=== PATIENT | male | born 1980 | race Caucasian/White ===

== ENCOUNTER 2018-06-30 20:00 | Emergency (ER) | payer MEDICAID ==
[~2018-06-30] VITALS: Ht 170.2 cm; Wt 79.0 kg
[2018-06-30] MEDS ORDERED: ketorolac tromethamine 15mg/ml inj. IM ONE (21:00)
[2018-06-30] MEDS ORDERED: HYDR-4383 PO (21:04)
[2018-06-30] MEDS ORDERED: IBUP-1984 PO (21:04)
[2018-06-30 21:42] VITALS: BP 131/65
== END 2018-06-30 21:42 | disposition home or self-care (01) ==
LOC: ER 20:00
DX: K02.9 Dental caries, unspecified (principal); Z88.1 Allergy status to other antibiotic agents
CPT/HCPCS: 96372; 99283; J1885

== ENCOUNTER 2018-10-21 15:13 | Emergency (ER) | payer MEDICAID ==
[~2018-10-21] VITALS: Ht 170.2 cm; Wt 83.0 kg
[~2018-10-21 15:13] MED LIST: HYDR-4383 PO
[2018-10-21 15:17] VITALS: BP 132/76
[2018-10-21] MEDS ORDERED: dexamethasone sod phosphate 10mg/ml inj PO STA (15:38)
[2018-10-21] MEDS ORDERED: LIDOcaine Viscous 15ml cup MM STA (15:38)
[2018-10-21 16:46] LABS: MONOTEST NEGATIVE (Neg)
[2018-10-21] MEDS ORDERED: LIDO20SO16 PO (17:01)
== END 2018-10-21 17:13 | disposition home or self-care (01) ==
LOC: ER 15:13
DX: J02.8 Acute pharyngitis due to other specified organisms (principal); B97.89 Other viral agents as the cause of diseases classified elsewhere; F15.90 Other stimulant use, unspecified, uncomplicated; Z88.1 Allergy status to other antibiotic agents; Z79.899 Other long term (current) drug therapy
CPT/HCPCS: 36415; 86308; 87081; 87880; 99283; J1100

== ENCOUNTER 2018-10-25 02:12 | Emergency (ER) | payer MEDICAID ==
[~2018-10-25] VITALS: Ht 170.2 cm; Wt 81.8 kg
[~2018-10-25 02:12] MED LIST changes: +LIDO20SO16 PO
[2018-10-25 02:19] VITALS: BP 135/78
[2018-10-25] MEDS ORDERED: dexamethasone sod phosphate 10mg/ml inj IM STA (02:29)
[2018-10-25] MEDS ORDERED: ketorolac trometh inj. 60 MG/2 ML VIAL IM ONE (02:30)
[2018-10-25] MEDS ORDERED: amoxicillin 250mg capsule PO ONE (02:30)
[2018-10-25] MEDS ORDERED: AMOX500C2 PO (02:30)
== END 2018-10-25 02:54 | disposition home or self-care (01) ==
LOC: ER 02:13
DX: J02.9 Acute pharyngitis, unspecified (principal); F15.90 Other stimulant use, unspecified, uncomplicated; Z88.1 Allergy status to other antibiotic agents
CPT/HCPCS: 96372; 99283; J1100; J1885

== ENCOUNTER 2018-10-26 17:35 | Emergency (ER) | payer MEDICAID ==
[~2018-10-26] VITALS: Ht 170.2 cm; Wt 81.8 kg
[~2018-10-26 17:35] MED LIST changes: +AMOX500C2 PO
[2018-10-26] MEDS ORDERED: ketorolac trometh. 30mg/ml inj. IV ONE (19:00)
[2018-10-26] MEDS ORDERED: morphine 4 MG/ML inj SYRINge IV ONE (19:00)
[2018-10-26] MEDS ORDERED: normal saline 1000ml 1,000 ML IV ONE (19:00)
[2018-10-26 19:31] LABS: BASOPHILS # (AUTO) 0.1 X10'3 (0-0.2); BASOPHILS % (AUTO) 0.8 % (0-1); EOSINOPHILS # (AUTO) 0.1 X10'3 (0-0.9); HEMATOCRIT 42.2 % (42.0-52.0); HEMOGLOBIN 14.6 g/dl (14.0-17.9); LYMPHOCYTES # (AUTO) 2.7 X10'3 (1.1-4.8); LYMPHOCYTES % (AUTO) 25.1 % (21-51); MEAN CORPUSCULAR HEMOGLOBIN 33.1 PG (27.0-31.0); MEAN CORPUSCULAR HGB CONC 34.6 g/dL (33.0-36.5); MEAN CORPUSCULAR VOLUME 95.6 FL (78-98); MEAN PLATELET VOLUME 8.6 FL (7.4-10.4); MONOCYTES # (AUTO) 1.1 X10'3 (0-0.9); MONOCYTES % (AUTO) 9.9 % (2-12); NEUTROPHILS # (AUTO) 6.9 X10'3 (1.8-7.7); NEUTROPHILS % (AUTO) 63.2 % (42-75); PLATELET COUNT 255 X10'3 (140-440); RED BLOOD COUNT 4.42 X10'6 (4.70-6.10); RED CELL DISTRIBUTION WIDTH 12.2 % (11.5-14.5); WHITE BLOOD COUNT 10.9 X10'3 (4.5-11.0)
[2018-10-26] MEDS ORDERED: iohexol 300mg/ml 100ml inj. ONE (19:31)
--- NOTE | 2018-10-26 19:31 | NUR ---
to ct scan
--- NOTE | 2018-10-26 19:49 | NUR ---
back from ct
[2018-10-26 19:55] LABS: ALANINE AMINOTRANSFERASE 21 U/L (12-78); ALBUMIN 3.5 G/DL (3.4-5.0); ALBUMIN/GLOBULIN RATIO 0.9 (1.1-1.5); ALKALINE PHOSPHATASE 87 IU/L (46-116); ANION GAP 8 (8-16); ASPARTATE AMINO TRANSFERASE 19 U/L (10-37); BILIRUBIN,TOTAL 0.4 MG/DL (0.1-1.0); BLOOD UREA NITROGEN 26 MG/DL (7-18); BUN/CREATININE RATIO 26.3 (5.4-32.0); CHLORIDE 106 MMOL/L (99-107); CREATININE 0.99 MG/DL (0.60-1.10); GLUCOSE 91 MG/DL (70-104); POTASSIUM 4.3 MMOL/L (3.5-5.1); SODIUM 141 MMOL/L (135-145); TOTAL CARBON DIOXIDE 27.1 MMOL/L (24-32); TOTAL PROTEIN 7.5 G/DL (6.4-8.2); eGFR 84 ML/MIN
--- NOTE | 2018-10-26 19:59 | NUR ---
relieving RN for break, pt is resting quietly on gurney, liter bolus of NS infusing w/o, IV to rt forearm is patent and clear, waiting for CT results
[2018-10-26] MEDS ORDERED: dexamethasone sod phosphate 10mg/ml inj IV STA (21:04)
[2018-10-26] MEDS ORDERED: clindamycin 600mg/D5W 50ml 50 ML IV SCH (21:05)
--- NOTE | 2018-10-27 00:02 | NUR ---
CALLED [facility] TO SEE ABOUT ROOM. THEY ARE DOING A FALLOW UP ON IT AND WILL CALL BACK WITH INFO
--- NOTE | 2018-10-27 00:35 | NUR ---
CALLED [facility] AT 00:35. NOT AT [facility] WILL CALL BACK EVERY 30 MINS FOR AN ETA, OR UNTIL I GET AN ETA
[2018-10-27] MEDS ORDERED: morphine 4 MG/ML inj SYRINge IV ONE (01:00)
[2018-10-27] MEDS ORDERED: ondansetron/PF 4mg/2ml inj IV ONE (01:00)
--- NOTE | 2018-10-27 01:09 | NUR ---
CALLED [facility] AT 01:09 FOR ETA ON [employer]. STILL NOT ABLE TO GIVE US AN ETA
--- NOTE | 2018-10-27 01:38 | NUR ---
[facility] CALLED BACK WITH ETA 5 MINS
[2018-10-27 01:41] VITALS: BP 116/63
--- NOTE | 2018-10-27 01:41 | NUR ---
pt updated that ambulance transfer to be here in about 20 min. pt with stable vs and pain is 2 out of 10.
--- NOTE | 2018-10-27 01:47 | NUR ---
[facility] AT BEDSIDE FOR TRANSPORT TO [facility] FOR ENT SERVICE.
== END 2018-10-27 01:50 | disposition short-term general hospital (02) ==
LOC: ER 17:36
DX: J35.1 Hypertrophy of tonsils (principal); F15.90 Other stimulant use, unspecified, uncomplicated; Z88.1 Allergy status to other antibiotic agents; Z79.2 Long term (current) use of antibiotics; Z79.899 Other long term (current) drug therapy
CPT/HCPCS: 36415; 70491; 80053; 83605; 85025; 96365; 96375; 96376; 99285; J1100; J1885; J2270; J2405; J7030; Q9967; 96361; 99284; J3490

== ENCOUNTER 2019-02-16 14:49 | Emergency (ER) | payer MEDICAID, OTHER ==
[~2019-02-16] VITALS: Ht 170.2 cm; Wt 82.0 kg
[~2019-02-16 14:49] MED LIST changes: -AMOX500C2 PO
[2019-02-16 15:17] VITALS: BP 126/69
== END 2019-02-16 18:09 | disposition home or self-care (01) ==
LOC: ER 14:50
DX: J06.9 Acute upper respiratory infection, unspecified (principal); F17.200 Nicotine dependence, unspecified, uncomplicated; F15.90 Other stimulant use, unspecified, uncomplicated; Z88.1 Allergy status to other antibiotic agents
CPT/HCPCS: 71045; 99283

== ENCOUNTER 2020-05-18 13:35 | Emergency (ER) | payer OTHER ==
[~2020-05-18] VITALS: Ht 170.2 cm; Wt 69.1 kg
[2020-05-18] MEDS ORDERED: ketorolac tromethamine 15mg/ml inj. IM ONE (15:40)
[2020-05-18] MEDS ORDERED: CYCL-1 PO (15:41)
== END 2020-05-18 16:13 | disposition home or self-care (01) ==
LOC: ER 13:36
DX: S39.012A Strain of muscle, fascia and tendon of lower back, initial encounter (principal); F17.200 Nicotine dependence, unspecified, uncomplicated; Z88.1 Allergy status to other antibiotic agents; Z79.899 Other long term (current) drug therapy; X58.XXXA Exposure to other specified factors, initial encounter; Y93.89 Activity, other specified; Y92.89 Other specified places as the place of occurrence of the external cause; Y99.8 Other external cause status
CPT/HCPCS: 96372; 99284; J1885

== ENCOUNTER 2021-01-13 17:55 | Emergency (ER) | payer OTHER ==
[~2021-01-13 17:55] MED LIST changes: +CYCL-1 PO
== END 2021-01-13 19:48 | disposition left against medical advice (07) ==
LOC: ER 17:58
DX: M25.552 Pain in left hip (principal); Z53.21 Procedure and treatment not carried out due to patient leaving prior to being seen by health care provider

== ENCOUNTER 2021-11-07 10:26 | Emergency (ER) | payer BC, OTHER ==
[~2021-11-07] VITALS: Ht 167.6 cm; Wt 72.7 kg
[2021-11-07 10:35] VITALS: BP 118/51
[2021-11-07] MEDS ORDERED: CefTRIAXone 500MG IM Kit w/LIDOcaine IM ONE (13:05)
[2021-11-07] MEDS ORDERED: DOXYCYCLINE 100MG CAPSULE PO ONE (13:05)
[2021-11-07] MEDS ORDERED: DOXY100C76 PO (13:06)
== END 2021-11-07 13:45 | disposition home or self-care (01) ==
LOC: ER 10:27
DX: A63.8 Other specified predominantly sexually transmitted diseases (principal); Z79.1 Long term (current) use of non-steroidal anti-inflammatories (NSAID); Z79.899 Other long term (current) drug therapy; Z88.1 Allergy status to other antibiotic agents
CPT/HCPCS: 96372; 99283; J0696

== ENCOUNTER 2022-06-26 12:44 | Emergency (ER) | payer BC, OTHER ==
[~2022-06-26] VITALS: Ht 170.2 cm; Wt 72.7 kg
[2022-06-26 13:00] VITALS: BP 124/90
== END 2022-06-26 14:26 | disposition left against medical advice (07) ==
LOC: ER 12:44
DX: L08.9 Local infection of the skin and subcutaneous tissue, unspecified (principal); Z53.21 Procedure and treatment not carried out due to patient leaving prior to being seen by health care provider
CPT/HCPCS: 99281

== ENCOUNTER 2022-08-23 10:33 | Emergency (ER) | payer BC, OTHER ==
[~2022-08-23] VITALS: Ht 170.2 cm; Wt 68.2 kg
[2022-08-23 10:36] VITALS: BP 131/86
[2022-08-23] MEDS ORDERED: CefTRIAXone 1000mg IM Kit (w/lidocaine diluent) IM STA (10:49)
[2022-08-23] MEDS ORDERED: PENICILLIN G BENZATHINE 2,400,000 UNIT/4 ML SYRINGE IM STA (10:49)
[2022-08-23] MEDS ORDERED: azithromycin 250mg tablet PO ONE (10:50)
[2022-08-23] MEDS ORDERED: CefTRIAXone 500MG IM Kit w/LIDOcaine IM STA (10:55)
--- NOTE | 2022-08-23 10:59 | NUR ---
LAB WENT TO ROOM TO DRAW LABS. PT GOT UP AND SWIFTLY WALKED OUT AND TOLD NURSE HE HAD "FAMILY EMERGENCY" AND WALKED OUT. NOTIFIED.
== END 2022-08-23 11:01 | disposition home or self-care (01) ==
LOC: ER 10:33
DX: A64 Unspecified sexually transmitted disease (principal); Z88.1 Allergy status to other antibiotic agents
CPT/HCPCS: 99281

== ENCOUNTER 2022-08-26 05:49 | Emergency (ER) | payer BC, OTHER ==
[~2022-08-26] VITALS: Ht 167.6 cm; Wt 75.0 kg
[2022-08-26 06:17] VITALS: BP 138/78
[2022-08-26] MEDS ORDERED: CLOT15CR10 TOP (06:31)
[2022-08-26] MEDS ORDERED: DOXY-356 PO (06:31)
== END 2022-08-26 06:42 | disposition home or self-care (01) ==
LOC: ER 05:50
DX: Z20.2 Contact with and (suspected) exposure to infections with a predominantly sexual mode of transmission (principal); R21 Rash and other nonspecific skin eruption; Z88.1 Allergy status to other antibiotic agents; Z79.899 Other long term (current) drug therapy
CPT/HCPCS: 99283

== ENCOUNTER 2022-10-01 10:08 | Emergency (ER) | payer OTHER, MEDICAID ==
[~2022-10-01] VITALS: Ht 170.2 cm; Wt 73.4 kg
[~2022-10-01 10:08] MED LIST changes: +CLOT15CR10 TOP
[2022-10-01 10:26] VITALS: TEMP 98.2
[2022-10-01] MEDS ORDERED: LIDOcaine/epinephrine/tetracaine TOPICAL sol 3 ML syringe TOP ONE (11:50)
[2022-10-01] MEDS ORDERED: mupirocin 2% ointment 22GM TP ONE (11:50)
[2022-10-01] MEDS ORDERED: LIDOcaine 1% w/EPI 1:100,000 inj. MDV 50 ML VIAL IM ONE (11:50)
[2022-10-01] MEDS ORDERED: HYDR-3972 PO (12:45)
[2022-10-01] MEDS ORDERED: CEPH-585 PO (12:45)
[2022-10-01] MEDS ORDERED: SULF1TAB49 PO (12:45)
[2022-10-01 12:56] VITALS: BP 130/80; PULSE 76; RESP 17; O2SAT 97
== END 2022-10-01 13:00 | disposition home or self-care (01) ==
LOC: ER 10:08
DX: L02.412 Cutaneous abscess of left axilla (principal); F15.10 Other stimulant abuse, uncomplicated; Z88.1 Allergy status to other antibiotic agents; Z79.899 Other long term (current) drug therapy
CPT/HCPCS: 87070; 87077; 87186; 99283; J3490; A6258; A6449

== ENCOUNTER 2022-12-02 10:34 | Emergency (ER) | payer MEDICAID, OTHER ==
[~2022-12-02] VITALS: Ht 170.2 cm; Wt 70.2 kg
[~2022-12-02 10:34] MED LIST changes: +CEPH-585 PO
[2022-12-02 12:22] VITALS: BP 116/76; PULSE 96; RESP 16; TEMP 98.8; O2SAT 100
--- NOTE | 2022-12-02 13:46 | NUR ---
I agree with the assessment per Karis Gaffney LVN
== END 2022-12-02 12:47 | disposition home or self-care (01) ==
LOC: ER 10:34
DX: J20.9 Acute bronchitis, unspecified (principal); Z20.822 Contact with and (suspected) exposure to COVID-19; F15.90 Other stimulant use, unspecified, uncomplicated; Z88.1 Allergy status to other antibiotic agents; Z79.2 Long term (current) use of antibiotics; Z79.899 Other long term (current) drug therapy
CPT/HCPCS: 36415; 71045; 87502; 87503; 87811; 99284

== ENCOUNTER 2022-12-09 01:21 | Emergency (ER) | payer MEDICAID ==
[~2022-12-09] VITALS: Ht 167.6 cm; Wt 70.5 kg
[2022-12-09 01:35] VITALS: BP 142/75; PULSE 101; RESP 16; TEMP 97.8; O2SAT 100
[2022-12-09 02:01] LABS: BASOPHILS # (AUTO) 0.1 X10'3 (0-0.2); BASOPHILS % (AUTO) 1.2 % (0-1); EOSINOPHILS # (AUTO) 0.1 X10'3 (0-0.9); EOSINOPHILS % (AUTO) 1.2 % (0-6); HEMATOCRIT 42.2 % (42.0-52.0); HEMOGLOBIN 14.4 g/dl (14.0-17.9); LYMPHOCYTES # (AUTO) 3.1 X10'3 (1.1-4.8); LYMPHOCYTES % (AUTO) 37.9 % (21-51); MEAN CORPUSCULAR HEMOGLOBIN 31.7 PG (27.0-31.0); MEAN CORPUSCULAR HGB CONC 34.2 g/dL (33.0-36.5); MEAN CORPUSCULAR VOLUME 92.8 FL (78-98); MONOCYTES # (AUTO) 0.7 X10'3 (0-0.9); MONOCYTES % (AUTO) 8.4 % (2-12); NEUTROPHILS # (AUTO) 4.1 X10'3 (1.8-7.7); NEUTROPHILS % (AUTO) 51.3 % (42-75); PLATELET COUNT 403 X10'3 (140-440); RED BLOOD COUNT 4.54 X10'6 (4.70-6.10); RED CELL DISTRIBUTION WIDTH 12.9 % (11.5-14.5); WHITE BLOOD COUNT 8.1 X10'3 (4.5-11.0)
[2022-12-09 02:14] LABS: ALANINE AMINOTRANSFERASE 48 U/L (12-78); ALBUMIN 3.4 G/DL (3.4-5.0); ALBUMIN/GLOBULIN RATIO 0.8 (1.1-1.5); ALKALINE PHOSPHATASE 101 IU/L (46-116); ANION GAP 6 (8-16); ASPARTATE AMINO TRANSFERASE 20 U/L (10-37); BILIRUBIN,TOTAL 0.5 MG/DL (0.1-1.0); BLOOD UREA NITROGEN 19 MG/DL (7-18); CALCIUM 9.3 MG/DL (8.5-10.1); CHLORIDE 101 MMOL/L (99-107); CREATININE 1.27 MG/DL (0.60-1.10); GLUCOSE 104 MG/DL (70-104); POTASSIUM 3.8 MMOL/L (3.5-5.1); SODIUM 136 MMOL/L (135-145); TOTAL CARBON DIOXIDE 28.9 MMOL/L (24-32); TOTAL PROTEIN 7.6 G/DL (6.4-8.2); eCRCL 68 ML/MIN; eGFR 62 ML/MIN
[2022-12-09 02:15] LABS: LIPASE 25 U/L (16-77)
== END 2022-12-09 03:55 | disposition left against medical advice (07) ==
LOC: ER 01:21
DX: R10.31 Right lower quadrant pain (principal); Z53.21 Procedure and treatment not carried out due to patient leaving prior to being seen by health care provider
CPT/HCPCS: 36415; 80053; 83690; 85025; 99281

== ENCOUNTER 2023-04-07 11:44 | Emergency (ER) | payer MEDICAID ==
[~2023-04-07] VITALS: Ht 167.6 cm; Wt 80.1 kg
[2023-04-07 11:45] VITALS: BP 126/58; PULSE 96; TEMP 98.1; O2SAT 100
[2023-04-07] MEDS ORDERED: AMOX-580 PO (12:07)
[2023-04-07 12:31] VITALS: RESP 17
== END 2023-04-07 12:32 | disposition home or self-care (01) ==
LOC: ER 11:45
DX: J32.9 Chronic sinusitis, unspecified (principal); Z20.822 Contact with and (suspected) exposure to COVID-19; Z88.1 Allergy status to other antibiotic agents; Z79.2 Long term (current) use of antibiotics; Z79.899 Other long term (current) drug therapy
CPT/HCPCS: 36415; 87811; 99283

== ENCOUNTER 2023-04-29 05:41 | Emergency (ER) | payer MEDICAID ==
[~2023-04-29] VITALS: Ht 167.6 cm; Wt 83.0 kg
[2023-04-29 05:46] VITALS: BP 127/73; PULSE 87; RESP 16; TEMP 98.2; O2SAT 99
== END 2023-04-29 07:14 | disposition left against medical advice (07) ==
LOC: ER 05:42
DX: M25.551 Pain in right hip (principal); Z53.21 Procedure and treatment not carried out due to patient leaving prior to being seen by health care provider
CPT/HCPCS: 99281

== ENCOUNTER 2023-10-10 21:07 | Emergency (ER) | payer BC, MEDICAID ==
[~2023-10-10] VITALS: Ht 167.6 cm; Wt 81.8 kg
[~2023-10-10 21:07] MED LIST changes: -CEPH-585 PO
[2023-10-10 21:20] VITALS: TEMP 98
[2023-10-10 21:54] LABS: BILIRUBIN,URINE NEGATIVE (Neg); CLARITY,URINE CLEAR (Clear); COLOR,URINE YELLOW (Yellow); GLUCOSE, URINE NEGATIVE (Neg); KETONES,URINE NEGATIVE (Neg); LEUKOCYTE ESTERASE ,URINE NEGATIVE (Neg); NITRITES, URINE NEGATIVE (Neg); OCCULT BLOOD,URINE LARGE (Neg); PROTEIN,URINE NEGATIVE (Neg); UROBILINOGEN,URINE 0.2 E.U/dL (0.2-1.0)
[2023-10-10 21:59] LABS: UA COLLECTION TYPE CLN CATCH MIDSTREAM
[2023-10-10] MEDS: normal saline 1000ML IV soln IVB ONE (22:00)
[2023-10-10] MEDS: ketorolac trometh 15mg/ml vial 15 MG/ML ML IV ONE (22:01)
[2023-10-10 22:03] LABS: BACTERIA,URINE 2+ /HPF (Neg); RBC,URINE 20-50 /HPF (0-2); SQUAMOUS EPITHELIAL CELL,UR FEW /LPF (FEW); WBC,URINE 0-4 /HPF (0-4)
[2023-10-10 22:15] VITALS: BP 124/74; PULSE 79; RESP 15; O2SAT 96
[2023-10-10 22:26] LABS: ALANINE AMINOTRANSFERASE 33 U/L (12-78); ALBUMIN 3.6 G/DL (3.4-5.0); ALBUMIN/GLOBULIN RATIO 1.1 (1.1-1.5); ALKALINE PHOSPHATASE 85 IU/L (46-116); ANION GAP 8 (8-16); ASPARTATE AMINO TRANSFERASE 28 U/L (10-37); BILIRUBIN,TOTAL 0.4 MG/DL (0.1-1.0); BLOOD UREA NITROGEN 13 MG/DL (7-18); BUN/CREATININE RATIO 11.6 (10.0-20.0); CALCIUM 8.8 MG/DL (8.5-10.1); CHLORIDE 104 MMOL/L (99-107); CREATININE 1.12 MG/DL (0.60-1.10); GLUCOSE 98 MG/DL (70-104); LIPASE 35 U/L (16-77); POTASSIUM 3.7 MMOL/L (3.5-5.1); SODIUM 140 MMOL/L (135-145); TOTAL CARBON DIOXIDE 28.1 MMOL/L (24-32); TOTAL PROTEIN 6.8 G/DL (6.4-8.2); eCRCL 76 ML/MIN; eGFR 71 ML/MIN
[2023-10-10 22:27] LABS: BASOPHILS % (AUTO) 0.4 % (0-1); EOSINOPHILS # (AUTO) 0.1 X10'3 (0-0.9); EOSINOPHILS % (AUTO) 1.3 % (0-6); HEMATOCRIT 42.9 % (42.0-52.0); HEMOGLOBIN 14.4 g/dl (14.0-17.9); LYMPHOCYTES # (AUTO) 2.2 X10'3 (1.1-4.8); LYMPHOCYTES % (AUTO) 33.9 % (21-51); MEAN CORPUSCULAR HEMOGLOBIN 31.4 PG (27.0-31.0); MEAN CORPUSCULAR HGB CONC 33.6 g/dL (33.0-36.5); MEAN CORPUSCULAR VOLUME 93.3 FL (78-98); MONOCYTES # (AUTO) 0.5 X10'3 (0-0.9); MONOCYTES % (AUTO) 7.7 % (2-12); NEUTROPHILS # (AUTO) 3.7 X10'3 (1.8-7.7); NEUTROPHILS % (AUTO) 56.7 % (42-75); PLATELET COUNT 188 X10'3 (140-440); RED BLOOD COUNT 4.59 X10'6 (4.70-6.10); RED CELL DISTRIBUTION WIDTH 13.5 % (11.5-14.5); WHITE BLOOD COUNT 6.6 X10'3 (4.5-11.0)
[2023-10-11] MEDS ORDERED: HYDR-3965 PO (01:39)
[2023-10-11] MEDS ORDERED: ONDA-245 PO (01:39)
[2023-10-11] MEDS ORDERED: FLO0.4C PO (01:39)
== END 2023-10-10 23:20 | disposition home or self-care (01) ==
LOC: ER 21:08
DX: R31.9 Hematuria, unspecified (principal); M54.9 Dorsalgia, unspecified; Z88.1 Allergy status to other antibiotic agents; Z79.899 Other long term (current) drug therapy
CPT/HCPCS: 36415; 74176; 80053; 81001; 83690; 85025; 96374; 99285; J1885; J7030

== ENCOUNTER 2023-10-11 01:01 | Emergency (ER) | payer BC, MEDICAID ==
[~2023-10-11] VITALS: Ht 170.2 cm; Wt 81.8 kg
[2023-10-11 01:11] VITALS: TEMP 98.7
[2023-10-11] MEDS: HYDROcodone/acetaminophen 5mg/325mg tablet PO ONE (01:30)
[2023-10-11] MEDS ORDERED: ONDA-245 PO (01:39)
[2023-10-11] MEDS ORDERED: HYDR-3965 PO (01:39)
[2023-10-11] MEDS ORDERED: FLO0.4C PO (01:39)
[2023-10-11] MEDS: ondansetron/PF 4mg/2ml inj IV ONE (02:09)
[2023-10-11] MEDS: morphine 4 MG/ML inj SYRINge IV ONE (02:09)
[2023-10-11] MEDS: orphenadrine citrate 60mg/2ml inj. IM ONE (02:43)
[2023-10-11] MEDS: fentaNYL/PF 50MCG/1 ML 2ML syringe IV ONE (02:44)
[2023-10-11] MEDS: ondansetron 4mg rapidly disintigrating tab PO ONE (02:45)
[2023-10-11] MEDS: ketorolac trometh 15mg/ml vial 15 MG/ML ML IV ONE (04:14)
[2023-10-11 07:58] VITALS: BP 115/61; PULSE 82; RESP 14; O2SAT 97
== END 2023-10-11 08:02 | disposition home or self-care (01) ==
LOC: ER 01:02
DX: M54.50 Low back pain, unspecified (principal); R31.9 Hematuria, unspecified; Z88.1 Allergy status to other antibiotic agents; Z79.899 Other long term (current) drug therapy
CPT/HCPCS: 96372; 96374; 96375; 99285; J1885; J2270; J2360; J2405; J3010

== ENCOUNTER 2023-10-15 20:42 | Emergency (ER) | payer BC ==
[~2023-10-15] VITALS: Ht 170.2 cm; Wt 81.8 kg
[~2023-10-15 20:42] MED LIST changes: +FLO0.4C PO; +HYDR-3965 PO; +ONDA-245 PO
[2023-10-15 20:47] VITALS: TEMP 98.2
[2023-10-15 21:54] LABS: BILIRUBIN,URINE NEGATIVE (Neg); CLARITY,URINE CLEAR (Clear); COLOR,URINE STRAW (Yellow); GLUCOSE, URINE NEGATIVE (Neg); KETONES,URINE NEGATIVE (Neg); LEUKOCYTE ESTERASE ,URINE NEGATIVE (Neg); NITRITES, URINE NEGATIVE (Neg); OCCULT BLOOD,URINE TRACE-INTACT (Neg); PH,URINE 6.5 (4.8-8.0); PROTEIN,URINE NEGATIVE (Neg); UROBILINOGEN,URINE 0.2 E.U/dL (0.2-1.0)
[2023-10-15] MEDS ORDERED: FLO0.4C PO (21:54)
[2023-10-15 22:06] LABS: UA COLLECTION TYPE STRAIGHT CATH
[2023-10-15 22:08] LABS: WBC,URINE 0-4 /HPF (0-4)
[2023-10-15 22:09] LABS: BACTERIA,URINE FEW /HPF (Neg); MUCUS STRANDS FEW /LPF (Neg); SQUAMOUS EPITHELIAL CELL,UR FEW /LPF (FEW)
[2023-10-15] MEDS: tamsulosin 0.4mg capsule PO SCH (22:15)
[2023-10-15] MEDS ORDERED: PHEN-786 PO (22:23)
[2023-10-15] MEDS: phenazopyridine 100mg tablet PO ONE (22:33)
[2023-10-15 22:36] VITALS: BP 138/79; PULSE 82; RESP 17; O2SAT 99
== END 2023-10-15 22:41 | disposition home or self-care (01) ==
LOC: ER 20:43
DX: R39.11 Hesitancy of micturition (principal); F15.10 Other stimulant abuse, uncomplicated; Z88.1 Allergy status to other antibiotic agents; Z79.899 Other long term (current) drug therapy; Z79.2 Long term (current) use of antibiotics
CPT/HCPCS: 81001; 99284

== ENCOUNTER 2023-10-16 19:59 | Emergency (ER) | payer BC ==
[~2023-10-16] VITALS: Ht 170.2 cm; Wt 81.8 kg
[~2023-10-16 19:59] MED LIST changes: +PHEN-786 PO
[2023-10-16 20:14] VITALS: BP 146/76; PULSE 87; RESP 16; TEMP 98.3; O2SAT 97
[2023-10-16 20:42] LABS: BASOPHILS # (AUTO) 0.1 X10'3 (0-0.2); BASOPHILS % (AUTO) 1.1 % (0-1); EOSINOPHILS # (AUTO) 0.1 X10'3 (0-0.9); EOSINOPHILS % (AUTO) 1.7 % (0-6); HEMOGLOBIN 14.4 g/dl (14.0-17.9); LYMPHOCYTES # (AUTO) 2.2 X10'3 (1.1-4.8); LYMPHOCYTES % (AUTO) 35.8 % (21-51); MEAN CORPUSCULAR HGB CONC 34.2 g/dL (33.0-36.5); MEAN CORPUSCULAR VOLUME 93.6 FL (78-98); MEAN PLATELET VOLUME 8.6 FL (7.4-10.4); MONOCYTES # (AUTO) 0.4 X10'3 (0-0.9); MONOCYTES % (AUTO) 6.1 % (2-12); NEUTROPHILS # (AUTO) 3.5 X10'3 (1.8-7.7); NEUTROPHILS % (AUTO) 55.3 % (42-75); PLATELET COUNT 257 X10'3 (140-440); RED BLOOD COUNT 4.49 X10'6 (4.70-6.10); RED CELL DISTRIBUTION WIDTH 13.3 % (11.5-14.5); WHITE BLOOD COUNT 6.3 X10'3 (4.5-11.0)
[2023-10-16 20:58] LABS: ALANINE AMINOTRANSFERASE 26 U/L (12-78); ALBUMIN 3.6 G/DL (3.4-5.0); ALBUMIN/GLOBULIN RATIO 1.1 (1.1-1.5); ALKALINE PHOSPHATASE 94 IU/L (46-116); ANION GAP 8 (8-16); ASPARTATE AMINO TRANSFERASE 27 U/L (10-37); BILIRUBIN,TOTAL 0.4 MG/DL (0.1-1.0); BLOOD UREA NITROGEN 17 MG/DL (7-18); BUN/CREATININE RATIO 11.7 (10.0-20.0); CALCIUM 8.8 MG/DL (8.5-10.1); CHLORIDE 106 MMOL/L (99-107); CREATININE 1.45 MG/DL (0.60-1.10); GLUCOSE 104 MG/DL (70-104); LIPASE 36 U/L (16-77); POTASSIUM 4.1 MMOL/L (3.5-5.1); SODIUM 142 MMOL/L (135-145); TOTAL CARBON DIOXIDE 28.5 MMOL/L (24-32); eCRCL 61 ML/MIN; eGFR 53 ML/MIN
== END 2023-10-16 22:40 | disposition left against medical advice (07) ==
LOC: ER 20:00
DX: R35.0 Frequency of micturition (principal); R30.9 Painful micturition, unspecified; R39.15 Urgency of urination; N20.0 Calculus of kidney; Z53.21 Procedure and treatment not carried out due to patient leaving prior to being seen by health care provider
CPT/HCPCS: 36415; 74176; 80053; 83690; 85025